=== PATIENT | female | born 1985 | race Native Hawaiian/Other Pacific Islander ===

== ENCOUNTER 2021-03-01 17:24 | Emergency (ER) | payer OTHER ==
[~2021-03-01] VITALS: Ht 162.6 cm; Wt 99.8 kg
[2021-03-01 18:16] VITALS: BP 154/87; TEMP 99
== END 2021-03-01 18:29 | disposition home or self-care (01) ==
LOC: ED 17:24
DX: M54.89 Other dorsalgia (principal); G89.29 Other chronic pain; M62.830 Muscle spasm of back
CPT/HCPCS: 96372; 99283; J1885; J2930